=== PATIENT | female | born 1955 | race African-American/Black ===

== ENCOUNTER 2019-05-07 15:27 | Emergency (ER) | payer MEDICAID, OTHER ==
[~2019-05-07] VITALS: Ht 162.6 cm; Wt 53.5 kg
[~2019-05-07 15:27] MED LIST: CARI-277; DIAZ-104; NORCO; SERT100T
[2019-05-07] MEDS ORDERED: KETOROLAC TROMETH 30 MG/ML 1ML VIAL IV ONE (23:30)
[2019-05-08] VITALS: BP 133/82
[2019-05-08] MEDS ORDERED: MORPHINE SULF INJ 2 MG/ML SYRINGE 1ML IV ONE (00:45)
[2019-05-08] MEDS ORDERED: ONDANSETRON HCL 4 MG/2 ML VIAL IV ONE (00:45)
== END 2019-05-08 01:29 | disposition home or self-care (01) ==
LOC: EDBD 15:35 → ER 15:35
DX: M54.16 Radiculopathy, lumbar region (principal); G89.4 Chronic pain syndrome; I10 Essential (primary) hypertension; E07.9 Disorder of thyroid, unspecified; Z88.5 Allergy status to narcotic agent; Z88.2 Allergy status to sulfonamides; Z88.8 Allergy status to other drugs, medicaments and biological substances
CPT/HCPCS: 96374; 96375; 99283; J1885; J2270; J2405